=== PATIENT | male | born 1980 | race Caucasian/White ===

== ENCOUNTER → 2016-06-23 | Outpatient (CLI) | payer OTHER ==
--- NOTE | 2016-06-23 09:32 | KCIC ---
PROCEDURE Abdomen and pelvis CT without contrast. HISTORY Left nephrolithiasis. Hematuria. TECHNIQUE Computed tomographic images of the abdomen and pelvis were obtained without contrast. One or more of the following individualized dose reduction techniques were utilized for this examination: 1. Automated exposure control; 2. Adjustment of the mA and/or kV according to patient size; 3. Use of iterative reconstruction technique. COMPARISON None. FINDINGS Evaluation of the lower thorax demonstrates no infiltrate, effusion or pulmonary nodule. There is a trace pericardial effusion or mild pericardial thickening. The heart is normal in size. There is hepatomegaly and hepatic steatosis. The gallbladder, pancreas and adrenal glands are unremarkable. The spleen is mildly enlarged, measuring 15.9 cm. The appendix is unremarkable. No abnormally thickened or dilated loop of bowel is seen. There is a 5 mm nonobstructing stone within the upper pole the left kidney. No additional renal or ureteral stone is seen. There is a prominent right renal pelvis, likely due to the hydration status of the patient. There is no obstructive uropathy. There is mild urinary bladder wall thickening which may be due to relative underdistention. This is not clearly within limits to suggest cystitis or chronic outlet obstruction. No pathologically enlarged lymph node is seen. IMPRESSION 1. 5 mm nonobstructing left renal stone. There is no evidence of obstructive uropathy. 2. Slight urinary bladder wall thickening, likely due to relative underdistention. This is not clearly within limits to suggest cystitis or chronic outlet obstruction. 3. Hepatomegaly and hepatic steatosis. 4. Mild splenomegaly. 5. Suspected trace pericardial effusion or pericardial thickening. Electronically signed by: Emilee Dan (Jun 23, 2016 09:30:33)
== END | disposition home or self-care (01) ==
LOC: KCIC CT 08:19
DX: K76.0 Fatty (change of) liver, not elsewhere classified (principal); N20.0 Calculus of kidney; R16.0 Hepatomegaly, not elsewhere classified; R16.1 Splenomegaly, not elsewhere classified; R31.9 Hematuria, unspecified; Z87.442 Personal history of urinary calculi
CPT/HCPCS: 74176